=== PATIENT | female | born 1980 | race African-American/Black ===

== ENCOUNTER 2019-08-16 09:19 | Emergency (ER) | payer MEDICAID, SELFPAY ==
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
[2019-08-16 09:22] VITALS: BP 131/76; PULSE 109; RESP 18; TEMP 36.8; O2SAT 98
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
[2019-08-16 11:31] VITALS: BP 123/88; RESP 18; O2SAT 99
== END 2019-08-16 11:41 | disposition home or self-care (01) ==
PROVIDERS: Emergency Provider Emergency Medicine; PCP Family Medicine
DX: S40.022A Contusion of left upper arm, initial encounter (principal); S80.211A Abrasion, right knee, initial encounter; Y08.89XA Assault by other specified means, initial encounter
CPT/HCPCS: 73562; 73610; 99284; A9270

== ENCOUNTER 2020-02-27 23:05 | Emergency (ER) | payer MEDICAID, SELFPAY ==
--- NOTE | ~2020-02-27 | XR_ITS ---
EXAMINATION: XR chest 2V DATE: 02/27/2020 23:46 INDICATION: Left-sided chest pain radiating to the back and neck TECHNIQUE: PA and lateral views of the chest were obtained. COMPARISON: None FINDINGS: The lungs are clear with no focal airspace opacities, pulmonary edema, pleural effusion or pneumothor ax. Cardiomegaly. 55 degrees lower thoracic dextroscoliosis. IMPRESSION: 1. Cardiomegaly. Reviewed, dictated and finalized at location A. ME WORKER IMPRESSION: 1. Cardiomegaly.
[2020-02-27 23:07] VITALS: BP 142/73; PULSE 81; RESP 20; TEMP 36.4; O2SAT 100
--- NOTE | 2020-02-27 23:11 | ECG_ITS ---
Measurements Intervals Spearman Rate: 69 P: 50 RI: 156 QRS: 39 QRSD: 78 T: 53 QT: 364 QTc: 391 Interpretive Statements SINUS RHYTHM BORDERLINE T WAVE ABNORMALITY- ANTERIOR LEADS BASELINE ARTIFACT- II, III BORDERLINE ECG Electronically Signed On 02-28-2020 7:15:05 [employer]ADER [employer] TOP ASSEMBLER by Rancho Álvarez D.O.
[2020-02-27] MEDS: ASPIRIN 81 MG CHEWABLE TABLET 324 MG PO (23:22)
[2020-02-27 23:23] LABS: Basophils Percent Auto 0.4 % (0.2-1.2); Eosinophils Absolute Auto 0.2 K/mm3 (0-0.3); Eosinophils Percent Auto 2.4 % (0-4.4); Hematocrit 33.5 % (37.0-47.0); Hemoglobin 10.2 g/dL (12.0-15.0); Immature Granulocyte Absolute 0.01 K/mm3 (0.00-0.031); Immature Granulocyte Percent A 0.1 % (0-0.5); Lymphocytes Absolute Auto 3.61 K/mm3 (0.9-3.2); Lymphocytes Percent Auto 47.6 % (18.3-44.2); Mean Corpuscular HGB Conc 30.4 g/dl (32-36); Mean Corpuscular Hemoglobin 23.6 pg (26-34); Mean Corpuscular Volume 77.4 fl (80-100); Mean Platelet Volume 9.9 fl (7.4-10.4); Monocytes Absolute Auto 0.5 K/mm3 (0.1-0.6); Monocytes Percent Auto 6.5 % (2.6-8.5); Neutrophils Absolute Auto 3.3 K/mm3 (1.3-6.7); Platelet Count Result 279 k/mm3 (150-375); Red Blood Count 4.33 M/mm3 (4.2-5.4); Red Cell Distribution Width 15.9 % (11.5-14.5); White Blood Count 7.6 K/mm3 (4.5-10.0)
[2020-02-27 23:39] LABS: INR 0.8
[2020-02-27 23:40] LABS: Partial Thromboplastin Time 22.4 SECONDS (22.3-36.8)
[2020-02-27 23:47] LABS: Anion Gap 11 mmol/L (8-16); Blood Urea Nitrogen 18 mg/dL (7-17); Calcium 9.1 mg/dL (8.4-10.2); Carbon Dioxide 24 mmol/L (22-30); Chloride 106 mmol/L (98-107); Estimated Glomerular Filt Rate > 60; Glucose 103 mg/dL (65-105); Potassium 4.2 mmol/L (3.4-5.0); Sodium 141 mmol/L (137-145)
[2020-02-27 23:59] LABS: Troponin I < 0.012 ng/mL (0.000-0.034)
[2020-02-28] MEDS: KETOROLAC 15 MG/ML VIAL (*BKC) IV PUSH (00:09)
--- NOTE | 2020-02-28 00:37 | ED.GENADULT ---
HPI - General Adult General Chief complaint: Chest Pain Stated complaint: chest pain Time Seen by Provider: 02/27/20 23:17 History of Present Illness HPI narrative: Patient 39-year-old female presents emerged part with chief complaint of left-sided chest pain. The patient states the pain began this evening reports that it is of the left sternal border and also in the left back region. Patient reports that the pain is sharp states it is worse with movement and work worse with inspiration. Patient states that it is not improved by anything is worsened with palpation and inspiration. Patient reports she has history of scoliosis patient denies history of hypertension or other medical problems. Patient reports she has significant family history for cardiac disease. Related Data Home Medications Medication Instructions Recorded Confirmed hydrocodone-acetaminophen [[place]] 1 tablet PO Q4H PRN 08/16/19 meloxicam 15 mg PO DAILY 08/16/19 Allergies Allergy/AdvReac Type Severity Reaction Status Date / Time No Known Allergies Allergy Verified 08/16/19 09:30 Review of Systems Review of Systems: Narrative: A 10 system review of systems was completed on the patient and is negative except for what is stated in the HPI. Nursing and ancillary documentation was reviewed. [facility] Past Medical History Medical History Patient denies significant medical history Social History Social History Smoking status: Never smoker Gender identity (if verbalized by the patient): Female Comments Patient reports family history for significant for cardiac disease in the 40s with both mother and grandmother Past medical history significant for scoliosis Exam Narrative: Exam Narrative: GENERAL: Well-appearing, well-nourished, and in no acute distress. HEAD: Normocephalic, atraumatic. EYES: PERRLA and EOMI. ENT: Nares clear, no rhinorrhea or epistaxis. Mucous membranes moist. NECK: Supple. CHEST: Clear to auscultation. No respiratory distress. There is tenderness to palpation in the left sternal border there is also tenderness to palpation in the left scapular region and left lateral neck HEART: Regular rate and rhythm. No murmur heard. Normal peripheral pulses. ABDOMEN: Soft, nontender, nondistended, normal active bowel sounds. EXTREMITIES: Normal range of motion. No edema. SKIN: Warm, dry, no rash. NEURO: No focal deficits. Alert and oriented x3. PSYCH: Normal mood and affect. Course Course Emergency Course: EKG shows sinus rhythm rate of [address] elevation or ST depression Chest x-ray shows no evidence of focal infiltrate or acute finding Patient's chest pain is reproducible patient has a heart score of 1 given these findings is felt patient can be managed as an outpatient with follow-up with her primary care physician Vital Signs Vital signs: Vital Signs Temperature 36.4 C L 02/27/20 23:07 Pulse Rate 81 02/27/20 23:07 Respiratory Rate 20 02/27/20 23:07 Blood Pressure 142/73 H 02/27/20 23:07 Pulse Oximetry 100 02/27/20 23:07 Temperature 36.4 C L 02/27/20 23:07 Pulse Rate 81 02/27/20 23:07 Respiratory Rate 20 02/27/20 23:07 Blood Pressure 142/73 H 02/27/20 23:07 Pulse Oximetry 100 02/27/20 23:07 Medical Decision Making Vital Signs Vital Signs: Vital Signs Temperature 36.4 C L 02/27/20 23:07 Pulse Rate 81 02/27/20 23:07 Respiratory Rate 20 02/27/20 23:07 Blood Pressure 142/73 H 02/27/20 23:07 Pulse Oximetry 100 02/27/20 23:07 Temperature 36.4 C L 02/27/20 23:07 Pulse Rate 81 02/27/20 23:07 Respiratory Rate 20 02/27/20 23:07 Blood Pressure 142/73 H 02/27/20 23:07 Pulse Oximetry 100 02/27/20 23:07 Lab Data Result diagrams: 02/27/20 23:17 02/27/20 23:17 Labs: Lab Results 02/27/20 02/27/20 02/27/20 R
[2020-02-28 00:54] VITALS: BP 97/59; PULSE 85; RESP 15; O2SAT 99
== END 2020-02-28 00:58 | disposition home or self-care (01) ==
PROVIDERS: Emergency Provider Emergency Medicine; PCP Family Medicine
DX: R07.89 Other chest pain (principal); R94.31 Abnormal electrocardiogram [ECG] [EKG]
CPT/HCPCS: 36415; 71046; 80048; 84484; 85025; 85610; 85730; 93005; 96374; 99284; A9270; J1885

== ENCOUNTER 2020-07-14 12:47 | Outpatient (CLI) | payer BC, SELFPAY ==
--- NOTE | ~2020-07-14 | XR_ITS ---
XR_CERV2-3V_CR DATE: 07/14/2020 13:12 INDICATION: Chronic posterior neck pain. TECHNIQUE: AP, open mouth, lateral and swimmer views COMPARISON: None FINDINGS: There is straightening of the cervical spine. C1 and C2 are normally aligned and the odont oid process is intact. No fracture or dislocation or prevertebral soft tissue swelling. No preverte bral soft tissue swelling. Bilateral cervical ribs. IMPRESSION: Straightening Bilateral cervical ribs Reviewed, dictated and finalized at Location [facility]. Reviewed, dictated and finalized at location B.
== END 2020-07-14 12:48 | disposition home or self-care (01) ==
LOC: ANHIMG 12:57
PROVIDERS: PCP Family Medicine; Visit Provider Family Medicine
DX: G89.29 Other chronic pain (principal); M54.5 Low back pain
CPT/HCPCS: 72040

== ENCOUNTER 2021-02-01 10:33 | Outpatient (RCR) | payer BC, SELFPAY | END 2021-04-18 09:36 | disposition home or self-care (01) | LOC: ANHDMC 10:33 | PROVIDERS: PCP Family Medicine; Visit Provider Internal Medicine Gastroenterology | DX: E78.5 Hyperlipidemia, unspecified (principal) | CPT/HCPCS: 99199 ==

== ENCOUNTER 2021-07-05 14:36 | Outpatient (CLI) | payer BC, SELFPAY ==
--- NOTE | ~2021-07-05 | MM_ITS ---
EXAMINATION: MM screening pierre BI w gisel HISTORY: Screening TECHNIQUE: Craniocaudal and mediolateral oblique 3-D tomosynthesis images were obtained and synthetic 2-D images were generated. CAD analysis was submitted and interpreted. COMPARISON: 01/07/2019 BREAST PARENCHYMAL COMPOSITION: There are scattered areas of fibroglandular density. FINDINGS: There is no evidence of suspicious mass, calcification, or architectural distortion to sugg est malignancy in either breast. There has been no suspicious interval change. IMPRESSION: 1. No mammographic evidence of malignancy. 2. Recommend routine screening mammography in one year. BI-RADS Category 1: Negative Reviewed, dictated and finalized at location A.
== END 2021-07-05 14:37 | disposition home or self-care (01) ==
PROVIDERS: PCP Family Medicine
DX: Z12.31 Encounter for screening mammogram for malignant neoplasm of breast (principal)
CPT/HCPCS: 77063; 77067

== ENCOUNTER 2023-01-05 10:14 | Outpatient (CLI) | payer BC, SELFPAY ==
--- NOTE | ~2023-01-05 | MM_ITS ---
EXAMINATION: MM screening pierre BI w gisel HISTORY: Screening TECHNIQUE: Craniocaudal and mediolateral oblique 3-D tomosynthesis images were obtained and synthetic 2-D images were generated. CAD analysis was submitted and interpreted. COMPARISON: Comparison to multiple prior studies sequentially, with oldest reviewed study dated 12/27. BREAST PARENCHYMAL COMPOSITION: There are scattered areas of fibroglandular density. FINDINGS: There is no evidence of suspicious mass, calcification, or architectural distortion to sugg est malignancy in either breast. There has been no suspicious interval change. IMPRESSION: 1. No mammographic evidence of malignancy. 2. Recommend routine screening mammography in one year. BI-RADS Category 1: Negative Reviewed, dictated and finalized at location A. ON CUTTER
== END 2023-01-05 10:15 | disposition home or self-care (01) ==
LOC: ANHIMG 10:18
PROVIDERS: PCP Physician Assistant
DX: Z12.31 Encounter for screening mammogram for malignant neoplasm of breast (principal)
CPT/HCPCS: 77063; 77067

== ENCOUNTER 2024-06-18 11:37 | Outpatient (CLI) | payer OTHER, SELFPAY ==
--- NOTE | ~2024-06-18 | XR_ITS ---
3 VIEWS LUMBAR SPINE Ordering provider: Carlos Quevedo, PA History: . SCOLIOSIS DEFORMITY OF SPINE . Comparison: January 07, 2019. FINDINGS: VERTEBRAL BODIES:Levoscoliosis. No visible fracture or subluxation. DISK SPACES: Narrowing of the disc L4-L5, L3-L4 and L2- L3. SOFT TISSUES: Normal. IMPRESSION: No acute osseous abnormality lumbar spine. Multilevel degenerative disc disease. Reviewed, dictated and finalized at location A.
--- NOTE | ~2024-06-18 | XR_ITS ---
Thoracic spine: Clinical Indication: Scoliosis AP and lateral views were performed. There is dextroscoliosis with Calero angle of 52 degrees. The intervertebral disc spaces appear normal. Paravertebral soft tissues appear normal. Impression: Dextroscoliosis as noted above. Reviewed, dictated and finalized at [facility]. Impression: Dextroscoliosis as noted above.
--- OUTSIDE RECORDS SUMMARY | 2024-06-18 13:42 | XMS_ITS | Encounter Summary ---
Author Organization [facility] Care Team Providers Care Roll Form Operator Name Role Phone Unknown, Notinfalyssa Primary Care Provider Unavail able Encounter Details Date Type Department Care Team (Latest Contact Info) Description 02/25/2015 Orders Only MMG CLINCONV Provider, MD Saumya [address] [place] [id number] Social History Tobacco Use Types Packs/Day Years Used Date Smoking Tobacco: Never Comments Unknown Sex and Gender Information Value Date Recorded Sex Assigned at Not on file Legal Sex Female 9:13 AM BEAM BUILDER Gender Identity Not on file Sexual Orientation Not on file documented as of this encounter Plan of Treatment Not on file documented as of this encounter Procedures Procedure Name Priority Date/Time Associated Diagnosis Comments SCAN - PATHOLOGY 03/08/2015 12:0 0 AM BEAM BUILDER documented in this encounter Results * SCAN - PATHOLOGY (03/08/2015 12:00 AM BEAM BUILDER) Narrative 03/08/2015 12:00 AM BEAM BUILDER Ordered by an unspecified provider. us Historical Provider Final Res ult documented in this encounter Visit Diagnoses Not on filedocumented in this encounter Care Teams Roll Form Operator Relationship Specialty Start Date End Date Unknown, Miguel A PCP - General 12/28/22 documented as of this encounter
--- OUTSIDE RECORDS SUMMARY | 2024-06-18 13:42 | XMS_ITS | Clinical Summary ---
Author Organization [facility] Address [address] [place] [id number] Care Team Providers Care Remote Sensing Technician Name Role Phone Unknown, Notinfile Primary Care Provider Unavail able Allergies No known active allergies Medications predniSONE (DELTASONE) 50 mg tabletIndication s:Back Pain Take 1 tablet (50 mg) by mouth daily 5 tablet 12/28/2022 Active cyclobenzaprine (FLEXERIL) 10 mg tablet Take 1 tablet (10 mg total) by mouth 2 (two) times a day as needed for muscle spasms 20 tablet 12/28/2022 Active Active Problems Problem Noted Date Diagnosed Date Abnormal finding on imaging 09/17/2013 Discharge from nipple 09/06/2013 Fibromyalgia 12/19/2010 Immunizations Immunization Administration Dates Next Due PPD TEST 12/19/2010 Social History Tobacco Use Types Packs/Day Years Used Date Smoking Tobacco: Never Personal Safety Answer Date Recorded Have you ever been in or are you currently in a harmful physical or emotional relationship or is someone making you feel afraid or unsafe? Denies 12/28/2022 Comments Unknown Sex and Gender Information Value Date Recorded Sex Assigned at Not on file Legal Sex Female 9:13 AM RINKMAN Gender Identity Not on file Sexual Orientation Not on file Obstetrics History Last Filed Vital Signs Vital Sign Reading Time Taken Comments Blood Pressure 144/68 12/28/2022 5:20 PM CDT Pulse 86 12/28/2022 5:20 PM CDT Temperature 36.4 C (97.5 F) 12/28/2022 12:55 PM CDT Respiratory Rate 16 12/28/2022 3:35 PM CDT Oxygen Saturation 97% 12/28/2022 5:20 PM CDT Inhaled Oxygen Concentration - - Weight 67 kg (147 lb 11.3 oz) 12/28/2022 12:55 P M CDT Height 149.9 cm (4' 11 ) 03/04/2015 9:45 AM RINKMAN Body Mass Index 29.83 03/04/2015 9:45 AM RINKMAN Plan of Treatment Health Maintenance Due Date Last Done Comments Breast Cancer Screening-Mammogram 1980 Cervical Cancer Screening 1980 Depression Screening 1980 Hepatitis C Screening 1980 Varicella Vaccines (1 of 2 - 13+ 2-dose series) 1993 Hepatitis B Screening 1998 Regular Well Visit/Exam 18-64 1998 DTaP/Tdap/Td Vaccine (3 - Td or Tdap) 03/29/2023 03/29/2013, 10/25/1990 Covid-19 Vaccine (3 - 2023-2 5 season) 2023 06/26/2020, 05/22/2020 Influenza Vaccine (#1) 2023 01/29/2015 HPV Vaccines Aged Out No longer eligi ble based on patient's age to complete this topic Pneumococcal vaccine <65 Aged Out No longer eligible based on patient's age to complete this topic Insurance PLAN Care Teams Remote Sensing Technician Relationship Specialty Start Date End Date Unknown, Notinfile PCP - General 12/28/22
--- OUTSIDE RECORDS SUMMARY | 2024-06-18 13:42 | XMS_ITS | Encounter Summary ---
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 Historical Provider Final Res ult * PROCEDURE - RESULT (02/24/2015 12:00 AM FIRE TECHNOLOGY INSTRUCTOR) Narrative 02/24/2015 12:00 AM FIRE TECHNOLOGY INSTRUCTOR Ordered by an unspecified provider. Historical Provider Final Res ult documented in this encounter Visit Diagnoses Not on filedocumented in this encounter Care Teams Parts Counter Representative Relationship Specialty Start Date End Date Unknown, Miguel A PCP - General 12/28/22 documented as of this encounter
--- OUTSIDE RECORDS SUMMARY | 2024-06-18 13:42 | XMS_ITS | Data Portability ---
Author Organization [facility] Address [address] / [place] [address] Care Team Providers Care Catalog Librarian Name Role Phone ANA CAMILO Primary Care Provider Assessment No assessment recorded. Plan of Treatment Reminders Order Date Submit Date Provider Last Modified By Organization Details Last Modified Time Details Appointments None recorded. Lab CMP, serum or plasma 2021 022 [facility], [address], [place], [address], 2 10:53:28 lipid panel, serum 2021 022 [facility] [address], [place], [address], 2 10:53:26 CBC w/ auto diff 2021 022 [facility], [address], [place], [address], 2 10:53:26 TSH + free T4, serum 2021 022 [facility], [address], [place], [address], 2 10:53:41 HbA1c (hemoglobi n A1c), blood 2021 022 [facility], [address], [place], [address], 10:53:27 iron + total iron-leobardo ng capacity (TIBC), serum 2021 [facility], [address], [place], [address], 10:53:27 unlisted lab - ferritin-3 [id number] 2021 [facility], [address], [place], [address], 10:53:26 vitamin D, 25-hydroxy , total, serum 2021 [facility], [address], [place], [address], 10:53:26 PT/PTT, plasma 2021 [facility], [address], [place], [address], 10:53:27 HIV 1 + 2, meaningful use set 2021 [facility], [address], [place], [address], 10:53:26 beta-HCG, qualitativ e, serum or plasma 2021 [facility], [address], [place], [address], 10:53:28 T3, free, serum or plasma 2021 [facility], [address], [place], [address], 10:53:25 vitamin D, 25-hydroxy , total, serum 2020 021 [facility], [address], [place], [address], 16:11:05 CK (creatine kinase), total, serum 2020 021 [facility], [address], [place], [address], 16:11:06 CMP, serum or plasma 2020 021 [facility], [address], [place], [address], 16:11:02 lipid panel, serum 2020 021 [facility], [address], [place], [address], 16:11:03 CBC w/ auto diff 2020 021 [facility], [address], [place], [address], 16:11:01 TSH, ultra-sens itive, serum 2020 021 [facility], [address], [place], [address], 16:11:05 unlisted lab - hydrocodon e + metabolite s, U 2020 021 [facility], [address], [place], [address], 16:11:04 drug screen, urine 2020 021 [facility], [address], [address], [place], [address], 16:11:00 Referral pain management referral 2022 023 [facility] ([facility]), [address], [address], [place], [address], 4 12:44:[address] referral 2020 021 [email or web address] [place] , [address], [address], [place], [address], 15:56:46 endocrinol ogy referral 2020 [place], [address] [facility], [place], [address], 12:58:44 pain management referral - Chronic back pain 2020 JOSH Marinelli MD, [address], [address], [place], [address], 11:45:[address]/dietiti an referral - hyperlipid emia/famil y hx heart disease 2020 [facility], [address], [place], [address], 13:43:55 gastroente rologist referral 2020 JESUSAristeo Wright MD, [address] [facility], [address], [place], [address], 12:58:44 neurosurge ry referral 2020 021 [email or web address] 1 [facility], [address], [address], [place], [address], 10:01:35 Procedures None recorded. Surgeries None recorded. Imaging MRI, lumbar spine, w/ contrast 2022 023 [facility], [address], [place], [address], 3 08:50:35 PFT, complete 2022 023 thymanma [facility], [address] [place], [address], 4 08:21:30 XR, thoracolum bar spine, 2 or 3 view 2022 023 [facility], [facility] [address] [place] [address], [address], 3 12:31:24 electrocar diogram, routine ECG, 12 leads min 2021 022 [facility], [address] [place] [address] [place] [address], [address], 2 12:35:21 XR, cervical spine, 2 or 3 view 2020 021 [facility], [facility] [address] [place] [address], [address], 1 15:25:29 MRI, thoracic spine, w/wo contrast 2020 [email or web address] [place] [address] (Imaging), [address] [place] [address] [place] [address], [phone], 1 12:25:38 MRI, lumbar spine, w/wo contrast 2020 [email or web address] [place] [address] (Imaging), [address] [place], [place] [address] [address] [place] [address], [phone], 1 12:25:38 Medication Orders hydrocodon e 5 mg-acetami nophen 325 mg tablet 2020 021 [id number], [address] , [place], [place], [id number], 2 10:36:55 hydrocodon e 5 mg-acetami nophen 325 mg tablet 2020 021 [facility] #[id number], [address], [place], [place], [id number], 2 10:36:55 meloxicam 15 mg tablet 2020 021 k[facility]55719, [address], [place], [place], [id number], 3 12:20:27 Pennsaid 20 mg/gram/ac tuation (2 %) topical soln in metered-do se pump 2020 021 [facility], [address] [place] [address], [id number], 2 10:37:06 Patient TargetsNo targets recorded. Patient InstructionsNo instructions recorded. 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 Cell Referral for Microcytic hypochromic anemia Fe def anemia Referring Physician: Kristy Han, Internal Medicine, Encounter Date: 12/24/2020 Water Jet Loom Fixer Referral for Latrice meier history of ischemic heart disease family history heart disease Referring Physician: Kristy Han, Internal Medicine, Encounter Date: 12/24/2020 Paper Sheeter/dietitian Refer ral for Hyperlipidemia hyperlipidemia/family hx heart disease Referring Physician: Kristy Han, Internal Medicine, Encounter Date: 12/24/2020 Pain Management Referral for Chronic back pain Chronic back pain Referring Physician: Kristy Han, Internal Medicine, Encounter Date: 12/24/2020 Pain Management Referral for Dextroscoliosis Referring Physician: Ana Camilo, [facility], Encounter Date: 02/16/2023 Results Created Date Observation Date Name Description Value Unit Range Abnormal Flag Note LastModifiedBy Organization Detail LastModifiedTime 09/25/19 21 10/04/2020 COMPL IANCE DRUG SHARON SIS, UR summary report (summary) FINAL ===== ===== ===== ===== ===== ===== ===== ===== ===== ===== ===== ===== ===== === TOXAS SURE COMP DRUG SHARON SIS,U R ===== ===== ===== ===== ===== ===== ===== ===== ===== ===== ===== ===== ===== === Test Resul t Flag Units Drug Prese nt [place] codon e 2386 ng/mg creat [place] morph one 579 ng/mg creat Dihyd rocod eine 395 ng/mg creat Norhy droco done >1305 ng/mg creat Sourc es of hydro codon e inclu de sched uled presc ripti on medic ation s. [place] morph one, dihyd rocod eine and norhy droco done are expec flavia metab olite s of hydro codon e. [place] morph one and dihyd rocod eine are also avail able as sched uled presc ripti on medic ation s. Aceta minop hen PRESE NT ===== ===== ===== ===== ===== ===== ===== ===== ===== ===== ===== ===== ===== === Test Resul t Flag Units Ref Range Creat inine 383 mg/dL >=20 ===== ===== ===== ===== ===== ===== ===== ===== ===== ===== ===== ===== ===== === Decla red Medic ation s: Medic ation list was not provi ded. ===== ===== ===== ===== ===== ===== ===== ===== ===== ===== ===== ===== ===== === For clini louis consu ltati on, pleas e call [phone]. ===== ===== ===== ===== ===== ===== ===== ===== ===== ===== ===== ===== ===== === Not Available [facility] [address], [place], [address], 10/04/2020 16:10:34 09/25/19 21 10/04/2020 COMPL IANCE DRUG SHARON SIS, UR pdf . Not Available [facility] [address], [place], [address], 10/04/2020 16:10:34 10/20/19 21 10/24/2020 TOXAS SURE SELEC T 13 (MW) summary report (summary) FINAL ===== ===== ===== ===== ===== ===== ===== ===== ===== ===== ===== ===== ===== === TOXAS SURE SELEC T 13 (MW) ===== ===== ===== ===== ===== ===== ===== ===== ===== ===== ===== ===== ===== === Test Resul t Flag Units Drug Prese nt [place] codon e 862 ng/mg creat [place] morph one 281 ng/mg creat Dihyd rocod eine 293 ng/mg creat Norhy droco done 469 ng/mg creat Sourc es of hydro codon e inclu de sched uled presc ripti on medic ation s. [place] morph one, dihyd rocod eine and norhy droco done are expec flavia metab olite s of hydro codon e. [place] morph one and dihyd rocod eine are also avail able as sched uled presc ripti on medic ation s. ===== ===== ===== ===== ===== ===== ===== ===== ===== ===== ===== ===== ===== === Test Resul t Flag Units Ref Range Creat inine 231 mg/dL >=20 ===== ===== ===== ===== ===== ===== ===== ===== ===== ===== ===== ===== ===== === Decla red Medic ation s: Medic ation list was not provi ded. ===== ===== ===== ===== ===== ===== ===== ===== ===== ===== ===== ===== ===== === For clini louis consu ltati on, pleas e call . ===== ===== ===== ===== ===== ===== ===== ===== ===== ===== ===== ===== ===== === Not Available [facility] [address] [place] [address], [place], [address], 10/26/2020 16:11:00 10/20/19 21 10/24/2020 TOXAS SURE SELEC T 13 (MW) pdf . Not Available [facility] [address] [place] [address] [address], [place], [address], 10/26/2020 16:11:00 10/20/19 21 10/20/2020 CBC WITH DIFFE RENTI AL/PL ATELE T WBC 6.4 x10e3 /uL 3.4-10 .8 Not Available [facility] ([facility]) [address], [place], [address], 10/26/2020 16:11:01 10/20/19 21 10/20/2020 CBC WITH DIFFE RENTI AL/PL ATELE T RBC 4.29 x10e6 /uL 3.77-5 .28 Not Available [facility] ([facility]) [address], [place], [address], 10/26/2020 16:11:01 10/20/19 21 10/20/2020 CBC WITH DIFFE RENTI AL/PL ATELE T hemoglobin 9.4 g/dL 11.1-1 5.9 below low normal Not Available [facility] ([facility]) [address], [place], [address], 10/26/2020 16:11:01 10/20/19 21 10/20/2020 CBC WITH DIFFE RENTI AL/PL ATELE T hematocrit 31.6 % 34.0-4 6.6 below low normal Not Available [facility] ([facility]) [address], [place], [address], 10/26/2020 16:11:01 10/20/19 21 10/20/2020 CBC WITH DIFFE RENTI AL/PL ATELE T MCV 74 fL 79-97 below low normal Not Available [facility] ([facility]) [address], [place], [address], 10/26/2020 16:11:01 10/20/19 21 10/20/2020 CBC WITH DIFFE RENTI AL/PL ATELE T MCH 21.9 pg 26.6-3 3.0 below low normal Not Available [facility] ([facility]) [address] [place], [address], 10/26/2020 16:11:01 10/20/19 21 10/20/2020 CBC WITH DIFFE RENTI AL/PL ATELE T MCHC 29.7 g/dL 31.5-3 5.7 below low normal Not Available [facility] ([facility]) [address], [place], [address], 10/26/2020 16:11:01 10/20/19 21 10/20/2020 CBC WITH DIFFE RENTI AL/PL ATELE T RDW 17.1 % 11.7-1 5.4 above high normal Not Available [facility] ([facility]) [address] [place], [address], 10/26/2020 16:11:01 10/20/19 21 10/20/2020 CBC WITH DIFFE RENTI AL/PL ATELE T platelets 288 x10e3 /uL 150-45 0 Not Available [facility] ([facility]) [address] [place], [address], 10/26/2020 16:11:01 10/20/19 21 10/20/2020 CBC WITH DIFFE RENTI AL/PL ATELE T neutrophils 50 % not estab. Not Available [facility] ([facility]) [address] [place], [address], 10/26/2020 16:11:01 10/20/19 21 10/20/2020 CBC WITH DIFFE RENTI AL/PL ATELE T lymphs 41 % not estab. Not Available [facility] ([facility]) [address] [place], [address], 10/26/2020 16:11:01 10/20/19 21 10/20/2020 CBC WITH DIFFE RENTI AL/PL ATELE T monocytes 6 % not estab. Not Available [facility] ([facility]) [address] [place], [address], 10/26/2020 16:11:01 10/20/19 21 10/20/2020 CBC WITH DIFFE RENTI AL/PL ATELE T eos 2 % not estab. Not Available [facility] ([facility]) [address], [place], [address], 10/26/2020 16:11:01 10/20/19 21 10/20/2020 CBC WITH DIFFE RENTI AL/PL ATELE T basos 1 % not estab. Not Available [facility] ([facility]) [address], [place], [address], 10/26/2020 16:11:01 10/20/19 21 10/20/2020 CBC WITH DIFFE RENTI AL/PL ATELE T immature cells ELECTRONIC WARFARE OFFICER Not Available [facility] ([facility]) [address] [place], [address], 10/26/2020 16:11:01 10/20/19 21 10/20/2020 CBC WITH DIFFE RENTI AL/PL ATELE T neutrophils (absolute) 3.2 x10e3 /uL 1.4-7. 0 Not Available [facility] ([facility]) [address] [place], [address], 10/26/2020 16:11:01 10/20/19 21 10/20/2020 CBC WITH DIFFE RENTI AL/PL ATELE T lymphs (absolute) 2.7 x10e3 /uL 0.7-3. 1 Not Available [facility] ([facility]) [address] [place], [address], 10/26/2020 16:11:01 10/20/19 21 10/20/2020 CBC WITH DIFFE RENTI AL/PL ATELE T monocytes(ab solute) 0.4 x10e3 /uL 0.1-0. 9 Not Available [facility] ([facility]) [address], [place], [address], 10/26/2020 16:11:01 10/20/19 21 10/20/2020 CBC WITH DIFFE RENTI AL/PL ATELE T eos (absolute) 0.1 x10e3 /uL 0.0-0. 4 Not Available [facility] ([facility]) [address], [place], [address], 10/26/2020 16:11:01 10/20/19 21 10/20/2020 CBC WITH DIFFE RENTI AL/PL ATELE T baso (absolute) 0.0 x10e3 /uL 0.0-0. 2 Not Available [facility] ([facility]) [address], [place], [address], 10/26/2020 16:11:01 10/20/19 21 10/20/2020 CBC WITH DIFFE RENTI AL/PL ATELE T immature granulocytes 0 % not estab. Not Available [facility] ([facility]) [address], [place], [address], 10/26/2020 16:11:01 10/20/19 21 10/20/2020 CBC WITH DIFFE RENTI AL/PL ATELE T immature grans (abs) 0.0 x10e3 /uL 0.0-0. 1 Not Available [facility] ([facility]) [address], [place], [address], 10/26/2020 16:11:01 10/20/19 21 10/20/2020 CBC WITH DIFFE RENTI AL/PL ATELE T NRBC ELECTRONIC W[employer] OFFICER Not Available [facility] ([facility]) [address], [place], [address], 10/26/2020 16:11:01 10/20/19 21 10/20/2020 CBC WITH DIFFE RENTI AL/PL ATELE T hematology comments: ELECTRONIC WARFARE OFFICER Not Available [facility] ([facility]) [address], [place], [address], 10/26/2020 16:11:01 10/20/19 21 10/20/2020 COMP. METAB OLIC PANEL (14) glucose 113 mg/dL 65-99 above high normal Not Available [facility] ([facility]) [address] [place], [address], 10/26/2020 16:11:02 10/20/19 21 10/20/2020 COMP. METAB OLIC PANEL (14) BUN 14 mg/dL 6-20 Not Available [facility] ([facility]) [address] [place], [address], 10/26/2020 16:11:02 10/20/19 21 10/20/2020 COMP. METAB OLIC PANEL (14) creatinine 0.67 mg/dL 0.57-1 .00 Not Available [facility] ([facility]) [address], [place], [address], 10/26/2020 16:11:02 10/20/19 21 10/20/2020 COMP. METAB OLIC PANEL (14) eGFR if nonafricn AM 111 mL/mi n/1.7 3 >59 Not Available [facility] ([facility]) [address] [place], [address], 10/26/2020 16:11:02 10/20/19 21 10/20/2020 COMP. METAB OLIC PANEL (14) eGFR if africn AM 128 mL/mi n/1.7 3 >59 [facility] curre ntly repor ts eGFR in compl iance with the curre nt recom menda tions of the Natio nal Kid[facility] y [employer] ation . [facility] will updat e repor ting as new guide lines are publi shed from the NKF-A SN Task force . Not Available [facility] ([facility]) [address] [place], [address], 10/26/2020 16:11:02 10/20/19 21 10/20/2020 COMP. METAB OLIC PANEL (14) BUN/creatini ne ratio 21 9-23 Not Available [facility] ([facility]) [address], [place], [address], 10/26/2020 16:11:02 10/20/19 21 10/20/2020 COMP. METAB OLIC PANEL (14) sodium 139 mmol/ L 134-14 4 Not Available [facility] ([facility]) [address], [place], [address], 10/26/2020 16:11:02 10/20/19 21 10/20/2020 COMP. METAB OLIC PANEL (14) potassium 3.9 mmol/ L 3.5-5. 2 Not Available [facility] ([facility]) [address], [place], [address], 10/26/2020 16:11:02 10/20/19 21 10/20/2020 COMP. METAB OLIC PANEL (14) chloride 103 mmol/ L 96-106 Not Available [facility] ([facility]) [address] [place], [address], 10/26/2020 16:11:02 10/20/19 21 10/20/2020 COMP. METAB OLIC PANEL (14) carbon dioxide, total 23 mmol/ L 20-29 Not Available [facility] ([facility]) [address], [place], [address], 10/26/2020 16:11:02 10/20/19 21 10/20/2020 COMP. METAB OLIC PANEL (14) calcium 9.3 mg/dL 8.7-10 .2 Not Available [facility] ([facility]) [address] [place], [address], 10/26/2020 16:11:02 10/20/19 21 10/20/2020 COMP. METAB OLIC PANEL (14) protein, total 8.2 g/dL 6.0-8. 5 Not Available [facility] ([facility]) [address] [place], [address], 10/26/2020 16:11:02 10/20/19 21 10/20/2020 COMP. METAB OLIC PANEL (14) albumin 4.4 g/dL 3.8-4. 8 Not Available [facility] ([facility]) [address], [place], [address], 10/26/2020 16:11:02 10/20/19 21 10/20/2020 COMP. METAB OLIC PANEL (14) globulin, total 3.8 g/dL 1.5-4. 5 Not Available [facility] ([facility]) [address] [place], [address], 10/26/2020 16:11:02 10/20/19 21 10/20/2020 COMP. METAB OLIC PANEL (14) A/G ratio 1.2 1.2-2. 2 Not Available [facility] ([facility]) [address] [place], [address], 10/26/2020 16:11:02 10/20/19 21 10/20/2020 COMP. METAB OLIC PANEL (14) bilirubin, total 0.9 mg/dL 0.0-1. 2 Not Available [facility] ([facility]) [address] [place], [address], 10/26/2020 16:11:02 10/20/19 21 10/20/2020 COMP. METAB OLIC PANEL (14) alkaline phosphatase 86 IU/L 48-121 Not Available [facility] ([facility]) [address] [place], [address], 10/26/2020 16:11:02 10/20/19 21 10/20/2020 COMP. METAB OLIC PANEL (14) AST (SGOT) 16 IU/L 0-40 Not Available [facility] ([facility]) [address] [place], [address], 10/26/2020 16:11:02 10/20/19 21 10/20/2020 COMP. METAB OLIC PANEL (14) ALT (SGPT) 11 IU/L 0-32 Not Available [facility] ([facility]) [address] [place], [address], 10/26/2020 16:11:02 10/20/19 21 10/20/2020 LIPID PANEL WITH LDL/H DL RATIO cholesterol, total 231 mg/dL 100-19 9 above high normal Not Available [facility] ([facility]) [address] [place], [address], 10/26/2020 16:11:03 10/20/19 21 10/20/2020 LIPID PANEL WITH LDL/H DL RATIO triglyceride s 185 mg/dL 0-149 above high normal Not Available [facility] ([facility]) [address] [place], [address], 10/26/2020 16:11:03 10/20/19 21 10/20/2020 LIPID PANEL WITH LDL/H DL RATIO HDL cholesterol 46 mg/dL >39 Not Available [facility] ([facility]) [address] [place], [address], 10/26/2020 16:11:03 10/20/19 21 10/20/2020 LIPID PANEL WITH LDL/H DL RATIO VLDL cholesterol louis 34 mg/dL 5-40 Not Available [facility] ([facility]) [address] [place], [address], 10/26/2020 16:11:03 10/20/19 21 10/20/2020 LIPID PANEL WITH LDL/H DL RATIO LDL chol calc (nih) 151 mg/dL 0-99 above high normal Not Available [facility] ([facility]) [address] [place], [address], 10/26/2020 16:11:03 10/20/19 21 10/20/2020 LIPID PANEL WITH LDL/H DL RATIO comment: ELECTRONIC WARFARE OFFICER Not Available [facility] ([facility]) [address], [place], [address], 10/26/2020 16:11:03 10/20/19 21 10/20/2020 LIPID PANEL WITH LDL/H DL RATIO LDL/HDL ratio 3.3 ratio 0.0-3. 2 above high normal LDL/H DL Ratio Men Women 1/2 Avg.R isk 1.0 1.5 Avg.R isk 3.6 3.2 2X Avg.R isk 6.2 5.0 3X Avg.R isk 8.0 6.1 Not Available [facility] ([facility]) [address], [place], [address], 10/26/2020 16:11:03 10/20/19 21 10/26/2020 HYDRO CODON E + METAB OLITE S, U hydrocodone 1660 NG/mL Not Available [facility] [address], [place], [address], 10/26/2020 16:11:04 10/20/19 21 10/26/2020 HYDRO CODON E + METAB OLITE S, U hydromorphon e 937 NG/mL This test was marsha chatman and its perfo rmanc e elizabeth cteri stics deter mined by [facility]. It has not been clear ed or appro alana by the Food and Drug Admin istra tion. Not Available [facility] [address], [place], [address], 10/26/2020 16:11:04 10/20/19 21 10/20/2020 TSH TSH 1.510 uIU/m L 0.450- 4.500 Not Available [facility] ([facility]) [address], [place], [address], 10/26/2020 16:11:04 10/20/19 21 10/20/2020 VITAM IN D, 25-HY DROXY vitamin D, 25-hydroxy 24.0 NG/mL 30.0-1 00.0 below low normal Vitam in D defic iency has been defin ed by the Insti tute of Medic ine and an Endoc rine Socie ty pract ice guide line as a level of serum 25-OH vitam in D less than 20 ng/mL (1,2) . The Endoc rine Socie ty went on to furth er defin e vitam in D insuf ficie ncy as a level betwe en 21 and 29 ng/mL (2). 1. IOM (Inst itute of Medic ine). 2010. Dieta ry refer ence intak es for calci um and D. Wilder navas [place]: [facility] . 2. Cielo lee [place], Irene fu [place], Florentino off-F sagear i MOREAU, et al. Evalu ation , treat ment, and preve ntion of vitam in D defic iency : an Endoc rine Socie ty clini louis pract ice guide line. JCEM. 2010; 96(7) :1911 -30. Not Available [facility] ([facility]) [address], [place], [address], 10/26/2020 16:11:05 10/20/19 21 10/20/2020 CREAT INE KINCASSANDRA E,TOT AL creatine kinase,total 83 U/L 32-182 Not Available [facility] ([facility]) [address], [place], [address], 10/26/2020 16:11:06 12/02/19 21 12/07/2020 TOXAS SURE SELEC T 13 (MW) summary report (summary) FINAL ===== ===== ===== ===== ===== ===== ===== ===== ===== ===== ===== ===== ===== === TOXAS SURE SELEC T 13 (MW) ===== ===== ===== ===== ===== ===== ===== ===== ===== ===== ===== ===== ===== === Test Resul t Flag Units Drug Prese nt [place] codon e 312 ng/mg creat [place] morph one 326 ng/mg creat Dihyd rocod eine 134 ng/mg creat Norhy droco done 466 ng/mg creat Sourc es of hydro codon e inclu de sched uled presc ripti on medic ation s. [place] morph one, dihyd rocod eine and norhy droco done are expec flavia metab olite s of hydro codon e. [place] morph one and dihyd rocod eine are also avail able as sched uled presc ripti on medic ation s. ===== ===== ===== ===== ===== ===== ===== ===== ===== ===== ===== ===== ===== === Test Resul t Flag Units Ref Range Creat inine 131 mg/dL >=20 ===== ===== ===== ===== ===== ===== ===== ===== ===== ===== ===== ===== ===== === Decla red Medic ation s: Medic ation list was not provi ded. ===== ===== ===== ===== ===== ===== ===== ===== ===== ===== ===== ===== ===== === For clini louis consu ltati on, pleas e call . ===== ===== ===== ===== ===== ===== ===== ===== ===== ===== ===== ===== ===== === Not Available [facility] [address], [place], [address], 12/07/2020 20:08:41 12/02/19 21 12/07/2020 TOXAS SURE SELEC T 13 (MW) pdf . Not Available [facility] [address], [place], [address], 12/07/2020 20:08:41 07/15/19 21 07/14/2020 XR, cervi louis spine , 2 or 3 view No observ ation record ed. [address], [address], 07/15/2020 11:03:52 07/06/19 22 07/05/2021 MAMMO , scree asha, bilat eral No observ ation record ed. [address] [address], [place], [address], 07/06/2021 08:35:32 01/09/20 23 01/05/2023 MAMMO , scree asha, bilat eral No observ ation record ed. [address], [address], 01/08/2023 11:44:50 Result Notes None recorded. Problems Name Problem SNOMED Code Status Onset Date Resolution Date Notes Provider Name and Address Organization Details Recorded Time Dextrosc oliosis 41004089601 4101 Active 2020 40 degrees on x-ray01/2019 Carlos Quevedo PA-C Attn: Peyton horner,[address] [facility], [place], [address], [facility] 10:25:36 Vitamin D deficien 69620631 Active 2020 Carlos Quevedo PA-C Attn: Peyton horner[address] [facility], [place], [address], [place] [facility] 1 10:34:30 Hyperlip idemia 58246501 Active 2020 Carlos Quevedo PA-C Attn: Peyton horner,[address] [facility], [place], [address], [place] [facility] 1 10:34:43 Anemia 858827754 Completed 202012/24/2020 Kristy Han MD Attn: Peyton horner,[address] [facility], [place], [address], [place] [facility] 21:28:39 Microcyt ic hypochro anita anemia 09626974 Active 2020 Kristy Han MD Attn: Peyton horner,[address] [facility], [place], [address], [place] [facility] 21:26:56 Family history of ischemic heart disease 549752807 Active 2020 Kristy Han MD Attn: Peyton horner,[address] [facility], [place], [address], [place] [facility] 21:36:38 Chronic back pain 948308937 Active 2020 Kristy Han MD Attn: Peyton horner,[address] [facility], [place], [address], [place] [facility] 1 21:40:43 Opioid dependen ce 19354004 Active 2022 ALBERT GARCIA Attn: Peyton horner,[address] [facility], [place], [address], [place] [facility] 3 14:25:26 Bacteria l vaginosi s 312236256 Active Michael Salinas MA null, [place] [facility] 5 12:38:33 Abnormal cervical Papanico laou smear 205364166 Active MARY James-SAMANTA Attn: Peyton horner,[address] [facility], [place], [address], [place] [facility] 5 17:13:32 Problem Notes None recorded. Procedures Surgical History Date Name Laterality Status Provider Name and Address Organization Details Recorded Time 5 Control Implant Removal completed Mitzi Cross [facility] Attn: Accounting,[address] [facility], [place], [address], [facility] 11/27/2014 15:11:11 5 Control Implant Insertion completed [facility]itzi Cross [facility] Attn: Accounting,[address] [facility], [place], [address], [facility] 06/24/2014 16:11:57 5 Control Implant Removal completed [facility]itzi Cross [facility] Attn: Accounting,[address] [facility], [place], [address], [facility] 05/28/2014 11:11:30 3 Date of Last Pap Smear completed Andreea Hendrix RN [facility] 05/27/2014 11:58:11 Caesarean Section completed ALBERT GARCIA Attn: Accounting,[address] [place], [address], [facility] 07/20/2021 10:42:27 Breast Surgery completed Andreea Hendrix RN [facility] 05/27/2014 11:58:10 Imaging Results Imaging Date Name Status LastModified by Organiz ation Details LastModified Time 07/14/2020 XR, cervical spine, 2 or 3 view completed [address], [address], 07/15/2020 11:03:52 07/05/2021 MAMMO, screening, bilateral completed [address], [address], 07/06/2021 08:35:32 01/05/2023 MAMMO, screening, bilateral completed [address], [address], 01/08/2023 11:44:50 Procedure Notes None recorded. Medical Equipment None Reported. Allergies No known drug allergies Medications Name Sig Start Date Stop Date Status Note LastModified by Organization Details LastModified Time cyclobenz aprine 10 mg tablet Take 1 tablet 3 times a day by oral route. active Not Available Not Available No t Available medroxypr ogesteron e 10 mg tablet 06/22 completed Not Available Not Available Not Available fluconazo le 150 mg tablet Take 1 tablet as needed by oral route after meals for 1 day. 06/22 completed Not Available Not Available Not Available hydrocodo ne 5 mg-acetam inophen 325 mg tablet TAKE 1 TABLET BY MOUTH THREE TIMES DAILY NEEDED 07/20 completed Not Available Not Available Not Available meloxicam 15 mg tablet TAKE 1 TABLET BY MOUTH EVERY DAY 02/16 completed Not Available Not Available Not Available metronida zole 0.75 % (37.5 mg/5 gram) vaginal gel Insert 1 applicat orful every day by vaginal route at bedtime for 5 days. 12/06 completed Not Available Not Available Not Available metronida zole 500 mg tablet 12/06 completed Not Available Not Available Not Available acetamino phen 300 mg-codein e 30 mg tablet Take 1 tablet every 6 hours by oral route. 07/13 completed Not Available Not Available Not Available sulfameth oxazole 800 mg-trimet hoprim 160 mg tablet 06/22 completed Not Available Not Available Not Available Vitamin tablet Take 1 tablet every day by oral route with meals for 30 days. 06/22 completed Family planning meds Not Available Not Available Not Available doxycycli ne monohydra te 100 mg capsule 06/22 completed Not Available Not Available Not Available naproxen sodium 550 mg tablet 06/22 completed Not Available Not Available Not Available prednison e 50 mg tablet 02/16 completed Not Available Not Available Not Available mupirocin 2 % topical ointment 06/22 completed Not Available Not Available Not Available ergocalci ferol (vitamin D2) 1,250 mcg (50,000 unit) capsule TAKE 1 CAPSULE BY MOUTH EVERY WEEK active Not Available Not Available No t Available ibuprofen 600 mg tablet 12/06 completed Not Available Not Available Not Available rosuvasta tin 10 mg tablet TAKE 1 TABLET BY MOUTH EVERY DAY IN THE MORNING active Not Available Not Available No t Available omega-3 acid ethyl esters 1 gram capsule 2020 active Not Available Not Available Not Avai lable FeroSul 325 mg (65 mg iron) tablet TAKE 1 TABLET BY MOUTH TWICE DAILY WITH MEALS FOR 30 DAYS active Not Available Not Available No t Available Pennsaid 20 mg/gram/a ctuation (2 %) topical soln in metered-d ose pump APPLY 2 PUMPS (40 MG) TO THE AFFECTED KNEE(S) BY TOPICAL ROUTE 2 TIMES PER DAY 07/20 completed Not Available Not Available Not Available Vitals Date Recorded Body height Body mass index (BMI) Body weight Heart rate Oxygen saturation Oxygen saturation in Arterial blood by Pulse oximetry Systolic blood pressure Diastolic blood pressure Provider Name and Address Organization Details Last Updated DateTime 1 149.86 cm 29.1 kg/m2 24021.3 g 84 /min 97 % 97 % 120 mm[Hg] 80 mm[Hg] Lukas Rodas MA [place] [facility] 1 16:48:01 Date Recorded Body height Oxygen saturation Oxygen saturation in Arterial blood by Pulse oximetry Heart rate Respiratory rate Body mass index (BMI) Body weight Systolic blood pressure Diastolic blood pressure Provider Name and Address Organization Details Last Updated DateTime 2 149.86 cm 96 % 96 % 72 /min 18 /min 28.6 kg/m2 05509.6 2 g 116 mm[Hg] 74 mm[Hg] Leni Hankins MA [place] [facility] 2 10:40:13 Date Recorded Body height Body mass index (BMI) Body weight Oxygen saturation Oxygen saturation in Arterial blood by Pulse oximetry Heart rate Respiratory rate Body temperature Systolic blood pressure Diastolic blood pressure Provider Name and Address Organization Details Last Updated DateTime 3 149.86 cm 29.6 kg/m2 18302.5 9 g 98 % 98 % 92 /min 16 /min 98 [degF] 158 mm[Hg] 74 mm[Hg] Jeana Healy CMA [place] [facility] 3 12:17:38 Date Recorded Systolic blood pressure Diastolic blood pressure Provider Name and Address Organization Details Last Updated DateTime 02/16/2023 147 mm[Hg] 92 mm[Hg] ALBERT GARCIA Attn: Accounting,[address] [facility], [place], [address], [facility] 02/16/2023 12:29:38 Social History Question Answer Notes LastModified by Organizat ion Details LastModified Time Tobacco Smoking Status Never Smoker Andreea Hendrix RN [facility], [facility] 05/27/2014 11:58:10 What Is Your Level Of Alcohol Consumption? None Information not available 05/27/2014 Are You Blind Or Do You Have Difficulty Seeing? No Information not available 06/10/2020 Is Blood Transfusion Acceptable In An Emergency? Yes [email or web address] Information not available 01/29/2015 What Is Your Level Of Caffeine Consumption? None Information not available 06/10/2020 How Much Tobacco Do You Chew? None [email or web address] Information not available 01/29/2015 In The 14 Days Before Symptom Onset, Have You Had Close Contact With A Laboratory-confi rmed COVID-19 While That Case Was Ill? No Information not available 06/10/2020 In The 14 Days Before Symptom Onset, Have You Had Close Contact With A Person Who Is Under Investigation For COVID-19 While That Person Was Ill? No Information not available 06/10/2020 Have You Been To An Area Known To Be High Risk For COVID-19? No Information not available 06/10/2020 Are You Currently Employed? Yes Self Employeed [email or web address] Information not available 01/29/2015 Are You Deaf Or Do You Have Serious Difficulty Hearing? No Information not available 06/10/2020 What Type Of Diet Are You Following? REGULAR Information not available 05/27/2014 Which Illicit Or Recreational Drugs Have You Used? None Information not available 05/27/2014 Do You Or Have You Ever Used E-cigarettes Or Vape? 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 No Information not available 06/10/2020 Live Alone Or With Others? With Others Children Information not available 01/29/2015 What Was The Date Of Your Most Recent Tobacco Screening? 02/16/2023 Information not available 02/16/2023 How Many Children Do You Have? 2 Information not available 05/27/2014 Performs Monthly Self-breast Exam? No Information not available 05/27/2014 Do You Use Protection During Sex? No Information not available 05/27/2014 What Is Your Relationship Status? Single Information not available 05/27/2014 Do You Use Your Seat Belt Or Car Seat Routinely? Yes Information not available 06/10/2020 Seat Belts Used Routinely Yes [email or web address] Information not available 01/29/2015 Are You Sexually Active? Yes Information not available 05/27/2014 Do You Have Smoke And Carbon Monoxide Detectors In Your Home? Yes Information not available 06/10/2020 Are You Passively Exposed To Smoke? No Information not available 12/12/2019 Do You Or Have You Ever Used Smokeless Tobacco? Never Used Smokeless Tobacco Information not available 09/15/2019 How Much Tobacco Do You Smoke? No Information not available 09/15/2019 General Stress Level Low Information not available 09/15/2019 Do You Feel Stressed (tense, Restless, Nervous, Or Anxious, Or Unable To Sleep At Night)? [id number] Information not available 06/10/2020 Do You Use Any Illicit Or Recreational Drugs? No Information not available 07/20/2021 Do You Use Sunscreen Routinely? No [email or web address] Information not available 01/29/2015 Has Tobacco Cessation Counseling Been Provided? No Information not available 07/20/2021 On What Date Was Tobacco Cessation Counseling Provided? 02/16/2023 Information not available 02/16/2023 How Many Years Have You Smoked Tobacco? 0 Information not available 12/12/2019 Sex: Female Functional Status Question Answer Note LastModified by Organization D etails LastModified Time Are you able to care for yourself? Yes Information n ot available 06/10/2020 What is your exercise level? None Information not available 05/27/2014 Mental Status None recorded. Family History Relationship Description Onset Age of this Age Resolved Age Notes LastModified by Organization Details LastModified Time Mother Heart disease 35 [email or web address] Not available 01/29/2015 12:20:50 Mother Hypertensive disorder 40 [email or web address] Not available 01/29/2015 12:20:50 Mother Cerebrovascu lar accident 56 ALW @ 56 [email or web address] Not available 01/29/2015 12:20:50 Maternal Grandmother Diabetes mellitus ALW @ 80 [email or web address] Not available 01/29/2015 12:20:50 Maternal Grandmother Heart disease ALW @ 80 [email or web address] Not available 01/29/2015 12:20:50 Maternal Grandmother Hypertensive disorder ALW @ 80 [email or web address] Not available 01/29/2015 12:20:50 Medical History Condition Response Coronary Artery Disease N Other N Atrial Fibrillation N High Blood Pressure N Breast Cancer N Lung Disease N Depression N COPD N Blood Clots N Breast Problem N Anesthesia Complications N Headaches/Migraines N Anxiety Disorder N Muscle, Joint, or Bone Problems N Arthritis N Polyps N Infertility N Acid Reflux (GERD) N Cancer N Stroke N ADHD N Endometriosis N High Cholesterol Y Liver Disease N Schizophrenia N Headaches N Fibromyalgia N Kidney Disease N Heart Problems N Thyroid Problems N Kidney or Bladder Problems N GI Problems N Acne N Skin Problems N Eating Disorder N Anemia N Heart Attack (NH) N Ovarian Cancer N Diabetes N Blood Transfusions N Seizures/Epilepsy N Abuse/Domestic Violence N Asthma N Allergies N Substance Abuse N Hepatitis N Heart Disease N Pre-Eclampsia N Hypertension N Osteoporosis N Heart Failure N Gynecological History Statement/Question Response Flow Moderate Date of LMP 07/09/2021 On BCP's at Conception? N STIs/STDs N HPV Vaccine N Duration of Flow (days) 4 Most Recent Mammogram Age at Menarche 14 Current Control Method None Age at First Child 19 Frequency of Cycle (Q days) 28 Sexually Active? Y Menses Monthly Y Date of Last Pap Smear 07/23/2012 Sexual Problems? N LMP Approximate Desired Control Method None Obstetrics History GPAL:G 4 P 2 0 2 2 Type Value Multiple Births 0 Full Term 2 Induced 2 Spontaneous 0 Premature 0 Living 2 Ectopics 0 Total 4 Immunizations Vaccine Type Date Status Note Provider Nam e and Address Organization Details Recorded Time COVID-19, mRNA, LNP-S, PF, 30 mcg/0.3 mL dose 05/22/2020 completed Kailey Robert [place], [place] [facility] 08/27/2020 11:50:06 COVID-19, mRNA, LNP-S, PF, 30 mcg/0.3 mL dose 06/26/2020 completed Kailey Robert [place], [place] [facility] 08/27/2020 11:50:31 MMR 11/20/2016 completed Not Available [facility] 03/15/2019 02:33:59 Influenza, high-dose, trivalent, PF 01/29/2015 completed Mitzi Cross [facility] Attn: Accounting,[address] [place], [address], [place] [facility] 01/29/2015 12:26:09 Tdap 03/29/2013 completed Demetria Rucke r [place] [facility] 11/20/2016 13:05:07 MMR 03/29/2013 completed Dem[place]ria Rucke [place] [facility] 11/20/2016 13:05:23 MMR 11/20/2016 completed Demetria Rucke r [place] [facility] 11/20/2016 13:05:39 Past Encounters Encounter ID Performer Location Encounter Start Date Encounter Closed Date Diagnosis/Indication Diagnosis SNOMED-CT Code Diagnosis ICD10 Code Diagnosis Note [id number] Andreea Hendrix RN [facility] ([employer]) [address] [place] [address] 05/27/2014 11:33:29 05/28/2014 12:01:50 Gynecologic examination 14480782 [id number] [facility] [address] [place] [address] 06/24/2014 14:39:43 06/25/2014 11:03:55 Contraception care management 704537179 Nexplanon insertion today. 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 Desires LAURIE! Counseling 767306071 Z71 .89 preconcept ion discussed 34 y\o increased risk of defects, and medical complicati ons. 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 Denies new sex partner of X 17 years ; works a lot. 6 days X 12 hours shifts. 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 r\t fear of procedure. [id number] [facility] [address] [place] [address] 11/20/2016 12:20:35 11/20/2016 19:29:49 Active or passive immunization 092575952 Z23 mmr per ma per vo [id number] Nohemi Waldrop MD [facility] [address] [address] 06/22/2017 11:33:50 06/25/2017 14:40:00 HPV - Human papillomavirus test positive 854043251 R87.619 had normal pap with [facility] in [place] Abnormal c ervical Papanicolaou smear 164836782 R87.619 normal colposcopy in 2017 Hyperlipid emia screening 867912876 Z13.220 will evaluate cardiac risk factors. Endocrine/ metabolic screening 831712104 Z13.228 advised patient on healthy diet and regular exercise. Check for elevated blood sugar, kidney problems, liver inflammati on, hypothyroi dism, anemia, and infection. Standardiz ed adult depression screening tool completed 8425471176 30855 Z13.89 no significan t depression found. [id number] Nohemi Waldrop MD [facility] [address] [place] [address] 12/06/2018 15:09:07 12/09/2018 12:14:18 Scoliosis deformity of spine 219648504 M41.9 respirator y insufficie ncy. Dysuria 62876233 R30.9 Screening mammography 24 743149 Z12.31 Fatigue 82861855 R53.83 Depression screening 171 038706 Z13.31 mild depression ; will monitor; may be related to chronic pain. [id number] Romana Gallardo [facility] [address] [place] [address] 12/13/2018 14:01:46 12/16/2018 14:12:12 Abnormal urine 978333831 R82.90 [id number] Nohemi Waldrop MD [facility] [address] [place] [address] 03/18/2019 11:02:35 03/25/2019 10:31:36 Lumbago with sciatica 989491722 M54.40 Chronic low back pain 27 5564336 M54.5 Patient referred to neurosurge ry in December of 2018. Scoliosis deformity of spine 923734381 M41.9 respirator y insufficie ncy. Patient states she has difficulty with deep breathing which limits her ability to exercise. Vitamin D deficiency 347 49443 E55.9 [id number] Nohemi Waldrop MD [facility] [address] [place] [address] 09/15/2019 09:28:39 09/22/2019 09:15:27 Scoliosis deformity of spine 891381917 M41.9 respirator y insufficie ncy. Patient states she has difficulty with deep breathing which limits her ability to exercise. Lumbago with sciatica 20 6036089 M54.40 Chronic low back pain 27 0158351 M54.5 Patient referred to neurosurge ry in December of 2018. Vitamin D deficiency 347 79737 E55.9 [id number] Nohemi Waldrop MD [facility] [address] [place] [address] 12/12/2019 16:35:31 12/22/2019 09:53:54 Chronic low back pain 838172545 M54.5 Patient referred to neurosurge ry in December of 2018. Chronic back pain 308186 002 M54.40 Scoliosis deformity of spine 797056286 M41.9 respirator y insufficie ncy. Patient states she has difficulty with deep breathing which limits her ability to exercise. Vitamin D deficiency 347 37116 E55.9 takes 5000 units a day. [id number] Nohemi Waldrop MD [facility] [address] [place] [address] 03/22/2020 09:27:32 03/24/2020 14:27:13 Vitamin D deficiency 71844207 E55.9 takes 50,000 units a day. Low back pain 142432320 M54.5 Depression screening 171 115968 Z13.31 patient does not appear to be significan tly depressed. [id number] Nohemi Waldrop MD [facility] [address] [place] [address] 06/10/2020 08:05:39 06/14/2020 14:52:30 Chronic back pain greater than three months duration 5094466440 02 G89.29 She is currently taking hydrocodon e and meloxicam, as well as vitamin D for documented deficiency . [id number] Carlos Quevedo PA-C [facility] [address] [place] [address] 09/22/2020 08:05:30 09/24/2020 05:51:30 Dextroscoliosis 9722652538 97372 M41.9 Hyperlipidemia 02816496 E78.5 Vitamin D deficiency 347 78218 E55.9 [id number] Kristy Han MD [facility] [address] [place] [address] 12/24/2020 16:27:21 12/27/2020 06:34:33 Microcytic hypochromic anemia 44417814 D50.9 Pt to see DIRECTOR ELECTRONICS. GI referral Vitamin D deficiency 347 19745 E55.9 Persistent despite prolonged therapy. Refer to endocrine Hyperlipidemia 87147406 E78.5 Family his tory of ischemic heart disease 379209379 Z82.49 Chronic back pain 413946 002 G89.29 [id number] ALBERT GARCIA [facility] [address] [place] [address] 07/20/2021 10:30:29 07/21/2021 17:41:17 Adult health examination 993944324 Z00.00 re-check iron, Vit D, and lipidneeds blood work and EKGpt completed mammogram on 07/05/21Lip osuction and breast reduction on 08/16/[address] [place] paperwork for medical clearance Dextroscoliosis 76581709 01 84332 M41.9 on XR 12/201840 degrees T7-T12 Depression screening 171 124887 Z13.31 PHQ 0 [id number] ALBERT GARCIA [facility] [address] [place] [address] 02/16/2023 12:08:35 02/20/2023 11:53:28 Dyspnea on exertion 19888776 R06.09 x6 monthswith exertion, walking up stairs and walking in a storecan't catch her breathno concerning sxno h/o asthmapt is not a smokerVSSP Ex- nlordered PFTsf/u in 1 moPatient was advised to go to the ED for worsening signs or symptoms including chest pain, SOB, fever, or unable to keep down food or liquids. Dextroscoliosis 03108078 01 93924 M41.9 on XR 12/2018- 40 degrees T7-T12on hydrocodon e x5 yrstaking grandfathe r's hydrocodon e multiple times/dayw ill refer to PMrepeat XR thoracicf/ u in 1 mo Myositis 29694693 M60.9 CT abd/pelvis w/ contrast 12/28/22: Abnormal enhancemen t of the right paraspinal muscles including the right psoas muscle and ileo psoas muscle along the concavity of the lower thoracic and lumbar curve. The findings are nonspecifi c but could reflect a chronic myositis. Consider non-emerge nt correlatio n with lumbar spine MRI with contrast. c/o R sided inguinal/h ip painmost likely related to scoliosisw ill order MRI lumbar spinef/u in 1 mo Elevated blood-pressure reading without diagnosis of hypertension 419563921 R03.0 BP 158/74, 147/92advi sed to check BP at home, goal BP <130/80, f/u with BP log in 1 wk Opioid dependence 672520 00 F11.20 taking grandfathe r's hydrocodon e x5 yrs Depression screening 171 804302 Z13.31 PHQ 0 Health Concerns Section Related Observation LastModified by Organization Detai ls LastModified Time None Recorded Concern Status LastModified by Organization Details LastModified Time None Recorded Advance Directives Directive None Recorded Payers Encounter Date Sequence Insurance Name Policy Number Policy Burt Covered Member ID Burt Member ID Guarantor Name 06/10/2020 1 [facility] (MEDICAID REPLACEMENT - [facility] [place]) [id number] Juliana Head [id number] Juliana Head 09/22/2020 1 [facility] (MEDICAID REPLACEMENT - [place]) [id number] Juliana Head [id number] Juliana Head 12/24/2020 1 [facility] (MEDICAID REPLACEMENT - O) [id number] Juliana Head [id number] Juliana Head 07/20/2021 1 [facility] (MEDICAID REPLACEMENT - O) [id number] Juliana Head [id number] Juliana Head 02/16/2023 1 [facility] (MEDICAID REPLACEMENT - O) [id number] Juliana Head [id number] Juliana Head Notes Date Note Type Note Provider Name and Address Organization Details Recorded Time 06/10/2020 text/html Back PainReporte d bypatient.Location:pa in radiating to the buttocks;pain radiating to the legs;pain radiating to the foot;pain radiating to the ankle; cervical, thoracic, and lumbar spine pain, with paraspinal muscle spasms. Quality:sharp;tinglin g Severity:worsening;se kimmie (8-10);interference with sleep;interference with work Duration:chronic Context:overuse; unusual activity; prior back problems; used medications for back pain Alleviating Factors:rest; relieved by changing position Aggravating Factors:movement/posi tioning;twisting;flex ing back;extending back Associated Symptoms:no fever; no weak limbs; no numbness of the legs/feet; no incontinence; no shortness of breath;tinglingNotes: She now has insurance and can get treatment for her upper and lower back, with radiation down the legs. She has chronic pain which is getting worse, extending down the back and into both sciatic nerves; she has done stretching exercises for her back on a daily basis for the past 6 months without improvement. She has documented scoliosis of 40 degrees in the thoracolumbar spine. She has been taking pain medications in order to be able to do ADLs and work. No incontinence, no falls, but has chronic ongoing pain which disturbs her sleep and makes it hard to prepare meals, wash dishes, do laundry, or walk through a grocery without having to stop and sit down. Nohemi Waldrop MD Attn: Accounting, [address] [place], [address], [facility] 06/13/2020 22:38:18 09/22/2020 text/html Dr. Waldrop was thinking of referring her to surgery for her dextroscoliosis Carlos Quevedo PA-C Attn: Accounting, [address] [place], [address], [facility] 09/22/2020 16:36:26 12/24/2020 text/html Has multiple questions re her lab result including hyperlipidemia, iron deficiency, Vit d deficiency and reduction in pain meds Kristy Han MD Attn: Accounting[address] [place], [address], [facility] 12/24/2020 21:46:30 07/20/2021 text/html Pt presents to establish care and medical clearance. Pt takes meloxicam for chronic back and hip pain due to scoliosis. She is requesting lab work and imaging for upcoming Plastic Surgery consult. Pt completed recent mammogram and pap smear by [employer] CLE[employer]ING MACHINE OPERATOR. Denies fever, chills, chest pain, SOB, n/v/d, abd pain, dizziness, weakness, or headaches. ALBERT GARCIA Attn: Accounting,[address] [facility], [place], [address], [facility] 07/20/2021 11:47:37 02/16/2023 text/html Pt presents for R sided hip pain, mid back pain, and SOB.C/o SOB x6 months. Worse with any physical activity, walking in a store or walking up stairs. Describes as feels like I can't catch my breath, lasts a couple seconds and then goes away. Denies cough, fevers, chills, chest pain, palpitations, SOB at rest, or leg swelling. Pt is not a smoker. No h/o asthma.Pt went to ED 1 mo ago and R sided stomach pain and back pain. She was told she has muscle inflammation, given muscle relaxer and prednisone w/o relief.Reports that she has been taking hydrocodone that is prescribed to her grandfather for her chronic back pain. She has tried lower strength pain medication w/o relief. Endorses that she needs help because she is reliant on the pain medication. ALBERT GARCIA Attn: Accounting,[address] [facility], [place], [address], [facility] 02/16/2023 14:27:36 OBGyn Episode No OBEpisode recorded.
--- OUTSIDE RECORDS SUMMARY | 2024-06-18 13:43 | XMS_ITS | Referral Summary ---
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
--- OUTSIDE RECORDS SUMMARY | 2024-06-18 13:43 | XMS_ITS | Data Portability ---
Author Organization [place] [facility], Main Office Address [address] [place] [address] Assessment No assessment recorded. Plan of Treatment Reminders Order Date Submit Date Provider Last Modified By Organization Details Last Modified Time Details Appointments Follow Up 15 2024 10:15A M ALBERT Brannon Not available Not available Not available Follow Up 2024 11:00A M ALBERT Brannon Not available Not available Not available Lab vitamin D, 25-hydrox y, total, serum [address] (Lab), [address] [place], [address], 06/05/2024 12:55:59 vitamin B12 + folate, serum or blood [address] (Lab), [address] [place], [address], 06/05/2024 12:55:59 drug screen, urine 2024 025 [facility] (Lab), [address] [place], [address], 05/27/2024 16:41:59 lipid panel, serum 2024 025 [facility] (Lab), [address] [place], [address], 05/21/2024 04:53:20 CMP, serum or plasma [address] (Lab), [address] [place], [address], 06/05/2024 12:55:58 CK (creatine kinase), total, serum [address] (Lab), [address] [place], [address], 06/05/2024 12:55:58 TSH, serum or plasma [address] (Lab), [address] [place], [address], 06/05/2024 12:55:58 CBC w/ auto diff [address] (Lab), [address] [place], [address], 06/05/2024 12:55:[address] referral - (wait on note/labs )Please eval and treat. Please call patient to schedule an appointme nt. Thank you 2024 JOSH Blandon MD, [address], [address], 06/02/2024 15:25:17 breast surgery referral - Needs a breast reduction . Triple D or F 38 Thank you /has scoliosis , and constant back pain . 2024 025 [email or web address] Not available 05/20/2024 15:56:27 Procedures None recorded. Surgeries None recorded. Imaging None recorded. Medication Orders hydrocodo ne 7.5 mg-acetam inophen 325 mg tablet 2024 025 [email or web address] 00 [id number], [address] [facility], [place], [place], [id number], 05/30/2024 18:03:48 meloxicam 7.5 mg tablet 2024 025 JESUS [facility] #[id number], [address] [facility], [place], [place], [id number], 05/20/2024 15:34:34 Patient TargetsNo targets recorded. Patient InstructionsNo instructions recorded. Reason for Referral Neurologist Referral for Sco liosis deformity of spine (wait on note/labs)Please eval and treat. Please call patient to schedule an appointment. Thank you Referring Physician: Family Ambrocio Alberto, Encounter Date: 05/20/2024 Breast Surgery Referral for Macromastia Needs a breast reduction . Triple D or F 38 Thank you /has scoliosis , and constant back pain . Referring Physician: Family Ambrocio Alberto, Encounter Date: 05/20/2024 Breast Surgery Referral for Macromastia Referring Physician: Family Ambrocio Alberto, Encounter Date: 06/18/2024 Problems Name Problem SNOMED Code Status Onset Date Resolution Date Notes Provider Name and Address Organization Details Recorded Time Scoliosis deformity of spine 652129897 Active 2024 ALBERT Brannon [address], [place], [address], [employer] 14:59:16 Macromastia 798191816 Active 2024 ALBERT Brannon [address], [place], [address], [employer] 15:00:55 Adult health examination Active 2024 ALBERT Brannon [address], [address], [place], [address], [employer] 15:03:19 Family history of hyperlipidemia 419630534 Active 2024 ALBERT Brannon [address], [address], [place], [address], [employer] 15:04:06 At increased risk for nutritional problem 300907444 Active 2024 ALBERT Brannon [address], [place], [address], [facility] [employer] [facility] 5 15:05:01 Vitamin D below reference range 298304149 Active 2024 ALBERT Brannon [address], [place], [address], [facility] [employer] [facility] 5 15:06:00 Problem Notes None recorded. Procedures Surgical History Date Name Laterality Status Provider Name and Address Organization Details Recorded Time 3 Most Recent Mammogram completed Marlena Buck RN [facility] [employer] [facility] 05/20/2024 14:48:35 3 Date of Last Pap Smear completed Marlena Buck RN [facility] [employer] [facility] 05/20/2024 14:48:57 9 Date of Last Colonoscopy completed Marlena Buck RN [facility] [employer] [facility] 05/20/2024 14:49:12 delivery completed Marlena Buck RN [facility] [employer] [facility] 05/20/2024 14:47:44 excision of cyst of breast completed Marlena Buck RN [facility] [employer] [facility] 05/20/2024 14:47:59 Imaging Results None recorded. Procedure Notes None recorded. Medical Equipment None Reported. Allergies No known drug allergies Medications Name Sig Start Date Stop Date Status Note LastModified by Organization Details LastModified Time meloxicam 7.5 mg tablet Take 1 tablet every day by oral route for 30 days. 025 active Not Available Not Available Not Avai lable hydrocodone 7.5 mg-acetaminop hen 325 mg tablet Take 1 tablet twice a day by oral route as needed for 30 days. 025 active Not Available Not Available Not Avai lable meloxicam active Not Available Not Manjula ilable Not Available Vitals Date Recorded Body height Body mass index (BMI) Body weight Respiratory rate Body temperature Heart rate Oxygen saturation Oxygen saturation in Arterial blood by Pulse oximetry Systolic blood pressure Diastolic blood pressure Provider Name and Address Organization Details Last Updated DateTime 5 149.86 cm 29.7 kg/m2 81442.0 8 g 16 /min 97.1 [degF] 70 /min 99 % 99 % 132 mm[Hg] 84 mm[Hg] Marlena Buck RN [facility] 14:51:13 Date Recorded Body height Body mass index (BMI) Body weight Body temperature Oxygen saturation Oxygen saturation in Arterial blood by Pulse oximetry Heart rate Systolic blood pressure Diastolic blood pressure Provider Name and Address Organization Details Last Updated DateTime 149.86 cm 29.3 kg/m2 95838.2 9 g 97.5 [degF] 98 % 98 % 53 /min 120 mm[Hg] 70 mm[Hg] Romana Sotelo RN [facility] 11:47:24 Social History Question Answer Notes LastModified by Organizat ion Details LastModified Time Tobacco Smoking Status Never Smoker Marlena Buck RN [facility] 05/20/2024 14:46:55 What Is Your Level Of Alcohol Consumption? None [email or web address] Information not available 05/20/2024 What Is Your Level Of Caffeine Consumption? None [email or web address] Information not available 05/20/2024 What Type Of Diet Are You Following? REGULAR [email or web address] Information not available 05/20/2024 What Is The Highest Grade Or Level Of School You Have Completed Or The Highest Degree You Have Received? [id number] Information not available 05/20/2024 Have There Been Any Changes To Your Family Or Social Situation? No [email or web address] Information no t available 05/20/2024 What Is Your Relationship Status? [email or web address] Information not available 05/20/2024 Do You Have Smoke And Carbon Monoxide Detectors In Your Home? Yes [email or web address] Information not available 05/20/2024 Are You Passively Exposed To Smoke? Yes Information no t available 05/20/2024 Are There Any Smokers In Your House? Yes [email or web address] Information not available 05/20/2024 Do You Use Any Illicit Or Recreational Drugs? No [email or web address] Information not available 05/20/2024 Sex: Unknown Functional Status None recorded. Mental Status None recorded. Family History Relationship Description Onset Age of this Age Resolved Age Notes LastModified by Organization Details LastModified Time Mother Congestive heart failure [email or web address] Not available 2024 14:44:26 Mother Malignant tumor of stomach [email or web address] Not available 2024 14:45:46 Unspecified Relation Hypertensive disorder [email or web address] Not available 2024 14:44:59 Medical History No medical history recorded. Gynecological History Statement/Question Response Date of Last Pap Smear 02/26/2022 Date of Last Colonoscopy 02/26/2018 Most Recent Mammogram 12/27/2022 Date of LMP 04/13/2024 Obstetrics History GPAL:G 0 P 0 0 0 0 Past Encounters Encounter ID Performer Location Encounter Start Date Encounter Closed Date Diagnosis/Indication Diagnosis SNOMED-CT Code Diagnosis ICD10 Code Diagnosis Note [id number] ALBERT Brannon [facility] [address] [place] [address] 05/20/2024 14:32:23 05/20/2024 15:56:27 Scoliosis deformity of spine 842617563 M41.9 Macromastia 050302144 N6 2 Family his tory of hyperlipidemia 706993332 Z83.49 At [facility] ed risk for nutritional problem 681003696 Z91.89 Vitamin D below reference range 125441189 E55.9 Long-term current use of opiate analgesic drug 0428904856 63177 Z79.891 Adult heal th examination 698919086 Z00.00 [id number] Nora Pedro [facility] Mihai [address] [place] [address] 06/18/2024 11:30:56 06/18/2024 12:17:50 Scoliosis deformity of spine 711942704 M41.9 Macromastia 002114654 N6 2 Health Concerns Section Related Observation LastModified by Organization Detai ls LastModified Time None Recorded Concern Status LastModified by Organization Details LastModified Time None Recorded Advance Directives Directive None Recorded Payers Encounter Date Sequence Insurance Name Policy Number Policy Burt Covered Member ID Burt Member ID Guarantor Name 05/20/2024 1 [facility] (MEDICAID HMO) [id number] Juliana Head [id number] Juliana Head Notes Date Note Type Note Provider Name and Address Organization Details Recorded Time 05/20/2024 text/html back pain upper and lower aggravated by macromastia. ALBERT Brannon [address] [place] [address], [place], [address], [place] [facility] 05/26/2024 11:20:10 OBGyn Episode No OBEpisode recorded.
== END 2024-06-18 11:38 | disposition home or self-care (01) ==
PROVIDERS: PCP Physician Assistant; Visit Provider Physician Assistant
DX: M41.86 Other forms of scoliosis, lumbar region (principal); M51.369 Other intervertebral disc degeneration, lumbar region without mention of lumbar back pain or lower extremity pain
CPT/HCPCS: 72072; 72100